=== PATIENT | male | born 1960 | race Caucasian/White ===

== ENCOUNTER → 2017-06-02 | Outpatient (CLI) | payer BC ==
[2017-06-02 09:34] LABS: Basophils % (A) 1 %; CH 32.4; Eosinophils # (A) 0.2 k/uL (0-0.7); Eosinophils % (A) 4 %; HCT 48.1 % (39.0-53.0); HDW 2.41; HGB 15.6 gm/dL (13.0-17.5); Luc # (Auto) 0.13; Luc % (Auto) 3; Lymphocytes # (A) 1.9 k/uL (1.0-4.8); Lymphocytes % (A) 39 %; MCHC 32.4 g/dL (31.0-37.0); MCV 98.7 fL (80.0-100.0); Mean Platelet Volume 7.5; Monocytes # (A) 0.4 k/uL (0-1.0); Monocytes % (A) 7 %; Neutrophils # (A) 2.2 k/uL (1.3-7.7); Neutrophils % (A) 46 %; RBC 4.87 m/uL (4.30-5.90); RDW 14.3 % (11.5-15.5); WBC 4.9 k/uL (3.8-10.6); WBC (Perox) 4.74
[2017-06-02 10:30] LABS: ALT 34 U/L (21-72); AST 32 U/L (17-59); Alkaline Phosphatase 54 U/L (38-126); Anion Gap 7 mmol/L; Blood Urea Nitrogen 13 mg/dL (9-20); Calcium 9.3 mg/dL (8.4-10.2); Carbon Dioxide 28 mmol/L (22-30); Chloride 103 mmol/L (98-107); Cholesterol 234 mg/dL (<200); Glucose 101 mg/dL (74-99); HDL Cholesterol 106 mg/dL (40-60); Non-African American GFR(MDRD) >60 (>60 ml/min/1.73 sqM); Potassium 4.8 mmol/L (3.5-5.1); Sodium 138 mmol/L (137-145); Total Bilirubin 1.3 mg/dL (0.2-1.3); Total Protein 7.3 g/dL (6.3-8.2)
== END | disposition home or self-care (01) ==
LOC: LABWHC1 08:56
PROVIDERS: ATTEND Internal Medicine
DX: Z00.00 Encounter for general adult medical examination without abnormal findings (principal); E78.5 Hyperlipidemia, unspecified; I10 Essential (primary) hypertension
CPT/HCPCS: 84439; 80061; 80053; 84443; 85025; 36415; G0103

== ENCOUNTER 2018-05-25 08:16 | Day surgery (SDC) | payer BC ==
[2018-05-23 12:55] VITALS: BMI 28.1
[~2018-05-25 08:16] MED LIST: LACTATED RINGERS 1,000 ML IV SCH
[2018-05-25 08:46] VITALS: RESP 18; TEMP 98.1
[2018-05-25] MEDS ORDERED: LIDOCAINE 1% 20 ML VIAL (10MG/ML) FOR IV START INTRADERMA ONE (08:56)
[2018-05-25] MEDS ORDERED: PROPOFOL 10 MG/ML 20 ML VIAL IV ONE (09:38)
--- NOTE | 2018-05-25 10:06 | P.PCN ---
Date of Procedure: 05/25/18 Procedure(s) Performed: procedure: Total colonoscopy. Preoperative diagnosis: Screening for neoplasia. Postoperative diagnosis: Exam within normal limits. Preparation: HalfLytely prep. Sedation: Was provided by anesthesia Brief clinical history: The patient is a 58-year-old male who is scheduled for this evaluation for screening for neoplasia age being his risk factor. His first exam was more than 10 years ago. The patient has no abdominal complaints , bleeding or anemia. Procedure: With the patient on his left lateral decubitus position and after informed consent and adequate sedation, the perianal area was inspected and it did not show any fissures or fistulas. There were no masses felt on digital rectal examination. The Olympus CFQ 160L video colonoscope was then inserted in the rectum in the usual fashion and advanced to the cecum. The mucosa appeared healthy. No polyps or tumors were seen or any obvious evidence of her disease or other pathology. I retroflexed the endoscope in the rectum before the endoscope was withdrawn. The patient tolerated the procedure well. Plan: The patient was reassured. He will follow up with you as planned and I recommended repeat exam in 10 years.
[2018-05-25 10:22] VITALS: BP 148/89; PULSE 72
== END 2018-05-25 10:46 | disposition home or self-care (01) ==
LOC: ORWHC2ENDO 08:16
DX: Z12.11 Encounter for screening for malignant neoplasm of colon (principal); I10 Essential (primary) hypertension; Z79.899 Other long term (current) drug therapy
CPT/HCPCS: 45378; J2704

== ENCOUNTER → 2018-07-19 | Outpatient (CLI) | payer BC ==
[2018-07-19 07:51] LABS: Basophils # (A) 0.1 k/uL (0-0.2); Basophils % (A) 1 %; Eosinophils # (A) 0.2 k/uL (0-0.7); Eosinophils % (A) 4 %; HCT 45.6 % (39.0-53.0); HGB 15.8 gm/dL (13.0-17.5); Lymphocytes # (A) 1.9 k/uL (1.0-4.8); Lymphocytes % (A) 43 %; MCH 33.4 pg (25.0-35.0); MCHC 34.6 g/dL (31.0-37.0); MCV 96.7 fL (80.0-100.0); Mean Platelet Volume 6.7; Monocytes # (A) 0.3 k/uL (0-1.0); Monocytes % (A) 7 %; Neutrophils # (A) 1.9 k/uL (1.3-7.7); Neutrophils % (A) 42 %; Platelet Count 247 k/uL (150-450); RBC 4.72 m/uL (4.30-5.90); RDW 13.4 % (11.5-15.5); WBC 4.5 k/uL (3.8-10.6)
[2018-07-19 16:33] LABS: Albumin 4.5 g/dL (3.80-4.90); Albumin/Globulin Ratio 2.37 (1.20-2.10); Anion Gap 6.7 mmol/L (4.00-12.00); Carbon Dioxide 28.3 mmol/L (21.6-31.8); Globulin 1.9 g/dL (2.1-3.7); Potassium 4.5 mmol/L (3.5-5.5); Total Bilirubin 1.3 mg/dL (0.2-1.2); Total Protein 6.4 g/dL (6.2-8.2)
== END ==
LOC: LABWHC1 07:24
PROVIDERS: ATTEND Internal Medicine
DX: Z00.00 Encounter for general adult medical examination without abnormal findings (principal); E78.5 Hyperlipidemia, unspecified
CPT/HCPCS: 80061; 80053; 85025; 36415; G0103

== ENCOUNTER → 2019-01-08 | Outpatient (CLI) | payer BC | LOC: LABWHC1 07:01 | PROVIDERS: ATTEND Urology | DX: C61 Malignant neoplasm of prostate (principal) | CPT/HCPCS: 36415; 84153 ==

== ENCOUNTER → 2019-07-03 | Outpatient (CLI) | payer BC | END | disposition home or self-care (01) | LOC: LABWHC1 07:22 | PROVIDERS: ATTEND Urology | DX: C61 Malignant neoplasm of prostate (principal) | CPT/HCPCS: 36415; 84153 ==

== ENCOUNTER → 2019-09-05 | Outpatient (CLI) | payer BC ==
--- NOTE | 2019-09-06 11:23 | MR ---
EXAMINATION TYPE: MR Prostate wo/w con DATE OF EXAM: 09/05/2019 COMPARISON: None IMAGE QUALITY: Good. INDICATION: Prostate Cancer PSA: 3.2 ng/ml Recent Biopsy and Date: 09/08/2018 Pathology Report (If Applicable): Positive for adenocarcinoma, Kat 7 of the right lateral apex (2 mm) and Kat 6 of the right apex (1 mm), on the left prostatic carcinoma of the left lateral apex measuring 2 mm benign prostatic parenchyma at other sites. TECHNIQUE: Examination was performed using a 3T MRI without an endorectal coil. Multiparametric imaging was perf ormed with T2 mutliplanar sequences, axial diffusion weighted imaging and dynamic contrast enhanced i maging, utilizing 8.5 mL intravenous Gadavist gadolinium contrast. FINDINGS: There is no clinically significant cancer identified. PROSTATE VOLUME: 4.5 x 4.5 x 4.4 cm (46.6 cc) PSA DENSITY: 5.6 ng/ml/cc Site 1: Assessment Category: 4 Size: 2 mm x 2 mm Location(s):right apex NVB invasion: No EPE: No Site 2: Assessment Category: 4 Size: 6 mm x 5 mm Location(s):right apex lateral NVB invasion: No EPE: No Seminal vesicle invasion: No Abnormal lymph nodes: No Bone metastases in inferior pelvis: No The T1 weighted images demonstrate no significant postprocedural hemorrhage. There are small circumscribed nodules of the central zone that are heterogenous compatible with mild benign prostatic hyperplasia. Urinary bladder appears trabeculated however urinary bladder is overall nondistended likely accountin g for the trabeculation urinary bladder wall thickening. There is a very small fat filled left inguin al hernia partially visualized. IMPRESSION: Highest Assessment Category: 4 There are 2 foci of clinically significant cancer identified. The first measures 6 x 5 mm of the righ t lateral prostate apex without extraprostatic extension. The second measures 2 x 2 mm of the right p rostate apex. The biopsy-proven 1 mm focus of prostatic adenocarcinoma in the left lateral apex is no t identified on MRI. No additional suspicious foci. False negative rates for MRI range from 5-20% depending on risk profile. Assessment Categories: 1 ? Very low (clinically significant cancer is highly unlikely to be present) 2 ? Low (clinically significant cancer is unlikely to be present) 3 ? Intermediate (the presence of clinically significant cancer is equivocal) 4 ? High (clinically significant cancer is likely to be present) 5 ? Very high (clinically significant cancer is highly likely to be present) Locations: PZ = peripheral zone; TZ = transition zone CZ=central zone; AFS = anterior fibromuscular stroma a=anterior half (i.e. PZa=anterior half of peripheral zone); pm= posterior medial (i.e PZpm) pl = postero-lateral (i.e. PZpl); p = posterior half (i.e. TZp) ; a = anterior half (i.e TZa or P Za) Other: N=no or no; E= equivocal; Y=yes EPE = extraprostatic extension NVB = neurovascular bundle NA = not applicable/not available
== END | disposition home or self-care (01) ==
LOC: RADMRIMAIN 11:24
PROVIDERS: ATTEND Urology
DX: C61 Malignant neoplasm of prostate (principal)
CPT/HCPCS: 72197; A9585

== ENCOUNTER → 2019-12-26 | Outpatient (CLI) | payer BC ==
[2019-12-26 09:48] LABS: Basophils % (A) 1 %; Eosinophils # (A) 0.2 k/uL (0-0.7); Eosinophils % (A) 3 %; HCT 45.2 % (39.0-53.0); Lymphocytes % (A) 45 %; MCH 32.4 pg (25.0-35.0); MCHC 33.3 g/dL (31.0-37.0); MCV 97.3 fL (80.0-100.0); Mean Platelet Volume 7.3; Monocytes # (A) 0.3 k/uL (0-1.0); Monocytes % (A) 7 %; Neutrophils # (A) 1.8 k/uL (1.3-7.7); Neutrophils % (A) 41 %; Platelet Count 274 k/uL (150-450); RBC 4.64 m/uL (4.30-5.90); RDW 13.5 % (11.5-15.5); WBC 4.4 k/uL (3.8-10.6)
[2019-12-26 15:56] LABS: African American GFR (CKD) 93.7 (60.0-200.0); Albumin 4.3 g/dL (3.80-4.90); Albumin/Globulin Ratio 2.05 (1.60-3.17); Anion Gap 7.6 mmol/L (4.00-12.00); Calcium 9.2 mg/dL (8.7-10.3); Carbon Dioxide 28.4 mmol/L (21.6-31.8); Chol/HDL Ratio 2.44; Globulin 2.1 g/dL (1.6-3.3); LDL Cholesterol,Calculated 100.8 mg/dL (0.0-131.0); Non-African American GFR(CKD) 80.9 (60.0-200.0); Potassium 4.6 mmol/L (3.5-5.5); Total Bilirubin 0.9 mg/dL (0.2-1.2); Total Protein 6.4 g/dL (6.2-8.2); VLDL Calculation 11.2 mg/dL (5.00-40.00)
[2019-12-26 16:03] LABS: T4, Free (Free Thyroxine) 1.2 ng/dL (0.80-1.80)
== END | disposition home or self-care (01) ==
LOC: LABWHC1 08:23
PROVIDERS: ATTEND Urology
DX: E78.5 Hyperlipidemia, unspecified (principal); C61 Malignant neoplasm of prostate; I10 Essential (primary) hypertension
CPT/HCPCS: 36415; 80053; 80061; 84153; 84439; 84443; 85025

== ENCOUNTER → 2020-04-29 | Outpatient (CLI) | payer BC | END | disposition home or self-care (01) | LOC: LABWHC1 07:28 | PROVIDERS: ATTEND Urology | DX: C61 Malignant neoplasm of prostate (principal) | CPT/HCPCS: 36415; 84153 ==

== ENCOUNTER → 2020-10-15 | Outpatient (CLI) | payer BC | END | disposition home or self-care (01) | LOC: LABWHC1 08:19 | PROVIDERS: ATTEND Urology | DX: C61 Malignant neoplasm of prostate (principal) | CPT/HCPCS: 36415; 84153 ==

== ENCOUNTER → 2021-05-15 | Outpatient (CLI) | payer BC ==
[2021-05-15 15:19] LABS: Basophils # (A) 0.04 X 10*3/uL (0.00-0.10); Eosinophils # (A) 0.14 X 10*3/uL (0.04-0.35); Eosinophils % (A) 3.5 %; HCT 45.8 % (39.6-50.0); HGB 15.4 g/dL (13.0-17.0); Lymphocytes # (A) 1.95 X 10*3/uL (0.90-5.00); Lymphocytes % (A) 49.2 %; MCH 33.7 pg (27.0-32.0); MCHC 33.6 g/dL (32.0-37.0); MCV 100.2 fL (80.0-97.0); Monocytes # (A) 0.42 X 10*3/uL (0.20-1.00); Monocytes % (A) 10.6 %; Neutrophils % (A) 35.4 %; Platelet Count 270 X 10*3/uL (140-440); RBC 4.57 X 10*6/uL (4.40-5.60); RDW 13.2 % (11.5-14.5); WBC 3.96 X 10*3/uL (4.50-10.00)
[2021-05-15 20:09] LABS: LDL Cholesterol,Calculated 105.5 mg/dL (0.0-131.0); Prostate Specific Antigen 6.3 ng/mL (0.00-4.50); T4, Free (Free Thyroxine) 1.52 ng/dL (0.800-1.800); Triglycerides 77.7 mg/dL (0.00-149.00); VLDL Calculation 15.54 mg/dL (5.00-40.00)
[2021-05-15 23:02] LABS: African American GFR (CKD) 104.1 (60.0-200.0); Albumin 4.7 g/dL (3.8-4.9); Albumin/Globulin Ratio 2.15 (1.60-3.17); Anion Gap 14.8 mmol/L (4.00-12.00); BUN/Creat Ratio 6.71 Ratio (12.00-20.00); Blood Urea Nitrogen 6.1 mg/dL (9.0-27.0); Calcium 8.9 mg/dL (8.7-10.3); Carbon Dioxide 22.1 mmol/L (21.6-31.8); Globulin 2.2 g/dL (1.6-3.3); Non-African American GFR(CKD) 89.9 (60.0-200.0); Potassium 4.8 mmol/L (3.5-5.5); Total Bilirubin 1.5 mg/dL (0.30-1.20); Total Protein 6.9 g/dL (6.2-8.2)
== END | disposition home or self-care (01) ==
LOC: LABWHC1 09:14
PROVIDERS: ATTEND Urology
DX: Z00.00 Encounter for general adult medical examination without abnormal findings (principal); C61 Malignant neoplasm of prostate; I10 Essential (primary) hypertension; E78.5 Hyperlipidemia, unspecified
CPT/HCPCS: 36415; 80053; 80061; 84153; 84439; 84443; 85025

== ENCOUNTER → 2021-11-23 | Outpatient (CLI) | payer BC | END | disposition home or self-care (01) | LOC: LABWHC1 10:02 | PROVIDERS: ATTEND Urology | DX: C61 Malignant neoplasm of prostate (principal) | CPT/HCPCS: 36415; 84153 ==

== ENCOUNTER → 2022-05-31 | Outpatient (CLI) | payer BC ==
[2022-05-31 23:12] LABS: Basophils # (A) 0.05 X 10*3/uL (0.00-0.10); Eosinophils # (A) 0.07 X 10*3/uL (0.04-0.35); Eosinophils % (A) 1.5 %; HGB 14.4 g/dL (13.0-17.0); Immature Grans, Automated 0.2 %; Lymphocytes # (A) 2.04 X 10*3/uL (0.90-5.00); Lymphocytes % (A) 42.4 %; MCH 33.7 pg (27.0-32.0); MCHC 33.5 g/dL (32.0-37.0); MCV 100.7 fL (80.0-97.0); Mean Platelet Volume 10.4 fL (9.5-12.2); Monocytes % (A) 10.4 %; NRBC Per 100 WBC 0 /100 WBCS (0.0-0.0); Neutrophils # (A) 2.14 X 10*3/uL (1.80-7.70); Neutrophils % (A) 44.5 %; Platelet Count 262 X 10*3/uL (140-440); RBC 4.27 X 10*6/uL (4.40-5.60); RDW 13.8 % (11.5-14.5); WBC 4.81 X 10*3/uL (4.50-10.00)
[2022-06-01] LABS: African American GFR (CKD) 109.1 (60.0-200.0); Albumin 4.6 g/dL (3.8-4.9); Albumin/Globulin Ratio 2.05 (1.60-3.17); BUN/Creat Ratio 13.17 Ratio (12.00-20.00); Blood Urea Nitrogen 10.6 mg/dL (9.0-27.0); Calcium 9.2 mg/dL (8.7-10.3); Carbon Dioxide 27.5 mmol/L (20.0-27.5); Globulin 2.3 g/dL (1.6-3.3); Non-African American GFR(CKD) 94.2 (60.0-200.0); Potassium 4.7 mmol/L (3.5-5.5); Prostate Specific Antigen 6.9 ng/mL (0.00-4.50); T4, Free (Free Thyroxine) 1.3 ng/dL (0.800-1.800); Total Bilirubin 1.1 mg/dL (0.30-1.20); Total Protein 6.9 g/dL (6.2-8.2); Triglycerides 48.7 mg/dL (0.00-149.00)
[2022-06-01 00:27] LABS: Chol/HDL Ratio 2.1 Ratio
== END | disposition home or self-care (01) ==
LOC: LABWHC1 13:22
PROVIDERS: ATTEND Urology
DX: Z00.00 Encounter for general adult medical examination without abnormal findings (principal); E78.5 Hyperlipidemia, unspecified; I10 Essential (primary) hypertension; C61 Malignant neoplasm of prostate
CPT/HCPCS: 36415; 80053; 80061; 83721; 84153; 84439; 84443; 85025

== ENCOUNTER → 2023-07-06 | Outpatient (CLI) | payer MEDICARE | END | disposition home or self-care (01) | LOC: LABWHC1 09:10 | PROVIDERS: ATTEND Urology | DX: C61 Malignant neoplasm of prostate (principal) | CPT/HCPCS: 36415; 84153 ==

== ENCOUNTER → 2024-01-09 | Outpatient (CLI) | payer MEDICARE | END | disposition home or self-care (01) | LOC: LABWHC1 07:52 | PROVIDERS: ATTEND Urology | DX: C61 Malignant neoplasm of prostate (principal) | CPT/HCPCS: 36415; 84153 ==

== ENCOUNTER → 2024-04-12 | Outpatient (CLI) | payer MEDICARE | END | disposition home or self-care (01) | LOC: LABWHC1 08:05 | PROVIDERS: ATTEND Urology | DX: C61 Malignant neoplasm of prostate (principal) | CPT/HCPCS: 36415; 84153 ==

== ENCOUNTER → 2024-07-03 | Outpatient (CLI) | payer MEDICARE ==
[2024-07-03 14:51] LABS: Basophils # (A) 0.03 X 10*3/uL (0.00-0.10); Basophils % (A) 0.8 %; Eosinophils # (A) 0.09 X 10*3/uL (0.04-0.35); Eosinophils % (A) 2.3 %; HCT 44.7 % (39.6-50.0); Lymphocytes # (A) 1.05 X 10*3/uL (0.90-5.00); Lymphocytes % (A) 26.9 %; MCH 32.6 pg (27.0-32.0); MCHC 33.6 g/dL (32.0-37.0); MCV 97.2 FL (80.0-97.0); Monocytes # (A) 0.46 X 10*3/uL (0.20-1.00); Monocytes % (A) 11.8 %; NRBC Per 100 WBC 0 X 10*3/uL (0.00-0.01); Neutrophils # (A) 2.27 X 10*3/uL (1.80-7.70); Neutrophils % (A) 57.9 %; Platelet Count 226 X 10*3/uL (140-440); RDW 13.7 % (11.5-14.5); WBC 3.91 X 10*3/uL (4.50-10.00)
[2024-07-03 15:21] LABS: ALT 23 U/L (10-49); AST 25 U/L (14-35); Albumin 4.6 g/dL (3.8-4.9); Alkaline Phosphatase 64 U/L (41-126); Blood Urea Nitrogen 10.4 mg/dL (9.0-27.0); Calcium 9.3 mg/dL (8.7-10.3); Carbon Dioxide 24.6 mmol/L (21.6-31.8); Chloride 102 mmol/L (96-109); Globulin 2.3 g/dL (1.6-3.3); Glucose 98 mg/dL (70-110); Potassium 4.6 mmol/L (3.5-5.5); Prostate Specific Antigen 7.76 ng/mL (0.000-4.500); Sodium 138 mmol/L (135-145); T4, Free (Free Thyroxine) 1.35 ng/dL (0.80-1.80); Total Bilirubin 1.3 mg/dL (0.3-1.2); Total Protein 6.9 g/dL (6.2-8.2)
== END | disposition home or self-care (01) ==
LOC: LABWHC1 10:24
PROVIDERS: ATTEND Urology
DX: C61 Malignant neoplasm of prostate (principal); I10 Essential (primary) hypertension; E78.5 Hyperlipidemia, unspecified
CPT/HCPCS: 36415; 80053; 83036; 84153; 84439; 84443; 85025

== ENCOUNTER → 2024-08-24 | Outpatient (CLI) | payer MEDICARE ==
--- NOTE | 2024-08-24 10:32 | MR ---
EXAMINATION TYPE: MR Prostate wo/w con DATE OF EXAM: 08/24/2024 COMPARISON: MRI prostate September 05, 2019 INDICATION: Prostate cancer PSA: 7.10 ng/ml in April 2024 Recent Biopsy and Date: September 2018 Pathology Report (If Applicable): Positive for adenocarcinoma, [place] 7 of the right lateral apex (2 mm) and Aurora 6 of the right apex (1 mm), on the left prostatic carcinoma of the left lateral apex measuring 2 mm. benign prostatic parenchyma at other sites. TECHNIQUE: Examination was performed using a 3T MRI without an endorectal coil. Multiparametric imaging was perf ormed with T2 mutliplanar sequences, axial diffusion weighted imaging and dynamic contrast enhanced i maging, utilizing 8 mL intravenous Gadavist gadolinium contrast. FINDINGS: PROSTATE VOLUME: 4.0 cm SI x 3.7 cm AP x 4.9 cm LR Vol= 38.0 cc PSA DENSITY: 0.19 ng/ml/cc Slightly enlarged prostate consistent with BPH is redemonstrated. Peripheral zone hypertrophy redemon strated. No definitive new suspicious lesions. Site 1: Assessment Category:4 Size: 6 mm Right posterior lateral peripheral zone axial image 15 showing subtle diminished signal on ADC mappin g and slight increased signal on DWI with diminished signal in T2-weighted images and focal postcontr ast enhancement similar in location and size to prior. Mild to moderate wall thickening and trabeculation of the urinary bladder. There is a small fat-conta ining left inguinal hernia. No destructive osseous lesions. IMPRESSION: Slightly enlarged prostate redemonstrated. Stable suspicious 5-6 mm lesion in the right lateral mid to apical region. No new suspicious lesions on prostate MRI. Highest Assessment Category: 4 MRI Stage: T1c N0 M0 based on review of pelvic images. False negative rates for MRI range from 5-20% depending on risk profile. Assessment Categories: 1 ? Very low (clinically significant cancer is highly unlikely to be present) 2 ? Low (clinically significant cancer is unlikely to be present) 3 ? Intermediate (the presence of clinically significant cancer is equivocal) 4 ? High (clinically significant cancer is likely to be present) 5 ? Very high (clinically significant cancer is highly likely to be present) [facility], , 08/24/2024 10:30 AM
== END | disposition home or self-care (01) ==
LOC: RADMRIMAIN 05:48
PROVIDERS: ATTEND Urology
DX: C61 Malignant neoplasm of prostate (principal); N40.0 Benign prostatic hyperplasia without lower urinary tract symptoms
CPT/HCPCS: 72197; A9585

== ENCOUNTER → 2024-11-15 | Outpatient (CLI) | payer MEDICARE ==
[2024-11-15 15:32] LABS: Basophils # (A) 0.04 X 10*3/uL (0.00-0.10); Basophils % (A) 1.1 %; Eosinophils # (A) 0.13 X 10*3/uL (0.04-0.35); Eosinophils % (A) 3.6 %; HCT 46.2 % (39.6-50.0); HGB 15.1 g/dL (13.0-17.0); Lymphocytes # (A) 1.83 X 10*3/uL (0.90-5.00); Lymphocytes % (A) 50.8 %; MCH 31.9 pg (27.0-32.0); MCHC 32.7 g/dL (32.0-37.0); MCV 97.7 FL (80.0-97.0); Mean Platelet Volume 10.4 FL (9.5-12.2); Monocytes # (A) 0.43 X 10*3/uL (0.20-1.00); Monocytes % (A) 11.9 %; NRBC Per 100 WBC 0 X 10*3/uL (0.00-0.01); Neutrophils # (A) 1.15 X 10*3/uL (1.80-7.70); Platelet Count 272 X 10*3/uL (140-440); RBC 4.73 X 10*6/uL (4.40-5.60); RDW 14.5 % (11.5-14.5)
[2024-11-15 15:34] LABS: BUN/Creat Ratio 9.56 Ratio (12.00-20.00); Blood Urea Nitrogen 8.6 mg/dL (9.0-27.0); Calcium 9.3 mg/dL (8.7-10.3); Carbon Dioxide 27.9 mmol/L (21.6-31.8); Chloride 100 mmol/L (96-109); Glucose 103 mg/dL (70-110); Potassium 4.8 mmol/L (3.5-5.5); Sodium 136 mmol/L (135-145)
== END | disposition home or self-care (01) ==
LOC: LABPAT 10:10
PROVIDERS: ATTEND Urology
DX: Z01.812 Encounter for preprocedural laboratory examination (principal); C61 Malignant neoplasm of prostate
CPT/HCPCS: 80048; 85025

== ENCOUNTER 2024-11-22 08:50 | Day surgery (SDC) | payer MEDICARE ==
[2024-11-19 14:46] VITALS: BMI 28.8
--- NOTE | 2024-11-20 21:47 | P.GSHP ---
History of Present Illness H&P Date: 11/20/24 Chief Complaint: Prostate cancer The patient is a 64-year-old white male diagnosed with prostate cancer in September 2018. His [place] score at that time was 7 (3+4), and he opted for active surveillance rather than treatment. His PSA level at the time of diagnosis was 4.3, and has increased to 7.76. He is clinically stable. Prostate MRI shows a prostate volume of 38 cc, with a PI-RADS 4 lesion seen within the right peripheral zone mid apex. - Cardiovascular Cardiovascular: Reports high blood pressure - Genitourinary (Male) Genitourinary: Reports nocturia Past Medical History Past Medical History: Cancer, Hearing Disorder / Deafness, Hypertension Additional Past Medical History / Comment(s): Had prior MRI of prostate, showed lesion and 3 biopsies positive for prostate cancer, being monitored by Dr Infante, elevated PSA. Mild hearing loss. History of Any Multi-Drug Resistant Organisms: None Reported Additional Past Surgical History / Comment(s): Colonoscopy, hemorrhoidectomy. Past Anesthesia/Blood Transfusion Reactions: No Reported Reaction Additional Past Anesthesia/Blood Transfusion Reaction / Comment(s): No hx blood transfusion. Smoking Status: Never smoker - Past Family History Mother Family Medical History: No Reported History Medications and Allergies Home Medications Medication Instructions Recorded Confirmed Type amLODIPine BESYLATE [Norvasc] 5 mg PO QAM 05/23/18 11/19/24 History Allergies Allergy/AdvReac Type Severity Reaction Status Date / Time No Known Allergies Allergy Verified 11/19/24 14:34 Surgical - Exam - General well developed, well nourished, no distress - Respiratory normal respiratory effort - Abdomen Abdomen: soft, non tender, no guarding, no rigid, no rebound Hernia: inguinal - Genitourinary normal penis with no external lesions, testicles non-tender - Rectum Rectum: normal sphincter tone, no masses, other (Prostate mildly enlarged but smooth) - Psychiatric oriented to time, oriented to person, oriented to place, speech is normal, memory intact Assessment and Plan (1) Malignant neoplasm of prostate Status: Acute Code(s): C61 - MALIGNANT NEOPLASM OF PROSTATE SNOMED Code(s): 347582647 Plan: The patient will undergo MRI-Ultrasound fusion transrectal biopsies of the prostate. The procedure has been reviewed in detail with the patient. He has been made aware of potential risks, which include anesthesia, bleeding, and infection.
[~2024-11-22 08:50] MED LIST changes: +DEXAMETHASONE SOD PHOSPHATE 4 MG/ML 1 ML VIAL IV ONE; +HYDROmorphone 0.5 MG/0.5 ML SYRINGE IVP PRN; -LACTATED RINGERS 1,000 ML IV SCH; +LIDOCAINE 1% (10MG/ML) FOR IV START INTRADERMA PRN; +MIDAZOLAM 2 MG/2 ML VIAL IV PRN; +ONDANSETRON 4 MG/2 ML VIAL IVP ONE; +fentaNYL (PF) 50 MCG/ML 2 ML AMP IVP PRN
[2024-11-22] MEDS: IV FLUID CONTINUATION 1,000 ML IV ONE (10:22)
[2024-11-22 10:24] VITALS: TEMP 97.2
[2024-11-22] MEDS: LACTATED RINGERS 1,000 ML IV SCH (10:28)
[2024-11-22] MEDS: GENTAMICIN 40 MG/ML 2 ML VIAL IM PRN (10:40)
[2024-11-22] MEDS ORDERED: PROPOFOL 10 MG/ML 20 ML VIAL IV ONE (11:33)
[2024-11-22] MEDS ORDERED: fentaNYL (PF) 50 MCG/ML 2 ML AMP ONE (11:33)
[2024-11-22] MEDS ORDERED: MIDAZOLAM 2 MG/2 ML VIAL ONE (11:33)
--- NOTE | 2024-11-22 11:56 | P.OP ---
Date of Procedure: 11/22/24 Preoperative Diagnosis: Adenocarcinoma of the prostate Postoperative Diagnosis: Same Procedure(s) Performed: MRI fusion biopsies of the prostate Anesthesia: MAC Surgeon: Terry Infante Estimated Blood Loss (ml): 5 IV fluids (ml): 100 Pathology: other (Prostate biopsies) Condition: stable Disposition: PACU Indications for Procedure: The patient is a 64-year-old white male diagnosed with prostate cancer in September 2018. His [place] score at that time was 7 (3+4), and he opted for active surveillance rather than treatment. His PSA level at the time of diagnosis was 4.3, and has increased to 7.76. He is clinically stable. Prostate MRI shows a prostate volume of 38 cc, with a PI-RADS 4 lesion seen within the right peripheral zone mid apex. Operative Findings: Diminished echogenicity within the target lesion. Description of Procedure: The patient was taken to the operating room and placed in the left lateral decubitus position. JIN revealed the prostate to be mildly enlarged but smooth. The [email or web address] transrectal ultrasound probe was placed intrarectally. It was then placed within the stand of the [employer] MRI/TRUS Fusion for Prostate Biopsy system. The prostate was imaged in both the axial and sagittal planes, revealing a prostate volume of 40 mL. Using the Biopty gun, 3 biopsies were obtained from the right peripheral zone mid gland target lesion. The remaining 12 biopsies of the peripheral zone were obtained utilizing a standard template. Once the procedure was completed, the ultrasound probe was removed. The patient tolerated the procedure well was taken to the recovery room stable condition.
[2024-11-22 12:12] VITALS: BP 125/77; PULSE 64; RESP 16
== END 2024-11-22 11:50 | disposition home or self-care (01) ==
LOC: OR 08:50
PROVIDERS: ATTEND Urology
DX: C61 Malignant neoplasm of prostate (principal); H91.90 Unspecified hearing loss, unspecified ear; I10 Essential (primary) hypertension; Z79.899 Other long term (current) drug therapy; Z98.890 Other specified postprocedural states
CPT/HCPCS: 88305; 55700; J2250; J1580; J3010; J2704

== ENCOUNTER → 2025-01-15 | Outpatient (CLI) | payer MEDICARE ==
[2025-01-15 15:01] LABS: HCT 42.5 % (39.6-50.0); HGB 13.9 g/dL (13.0-17.0); MCHC 32.7 g/dL (32.0-37.0); MCV 97.9 FL (80.0-97.0); Mean Platelet Volume 10.4 FL (9.5-12.2); NRBC Per 100 WBC 0 X 10*3/uL (0.00-0.01); Platelet Count 264 X 10*3/uL (140-440); RBC 4.34 X 10*6/uL (4.40-5.60); WBC 3.14 X 10*3/uL (4.50-10.00)
[2025-01-15 15:26] LABS: Basophils # (A) 0.03 X 10*3/uL (0.00-0.10); Eosinophils # (A) 0.08 X 10*3/uL (0.04-0.35); Eosinophils % (A) 2.5 %; Lymphocytes % (A) 54.1 %; Monocytes # (A) 0.33 X 10*3/uL (0.20-1.00); Monocytes % (A) 10.5 %; Neutrophils # (A) 0.99 X 10*3/uL (1.80-7.70); Neutrophils % (A) 31.6 %; RBC Morphology Normal (Normal)
[2025-01-15 15:38] LABS: Chol/HDL Ratio 2.38 Ratio; VLDL Calculation 10.98 mg/dL (5.00-40.00)
[2025-01-15 15:39] LABS: ALT 23 U/L (10-49); AST 29 U/L (14-35); Albumin 4.6 g/dL (3.8-4.9); Albumin/Globulin Ratio 2.09 Ratio (1.60-3.17); Alkaline Phosphatase 62 U/L (41-126); Blood Urea Nitrogen 11.3 mg/dL (9.0-27.0); Calcium 9.3 mg/dL (8.7-10.3); Carbon Dioxide 26.8 mmol/L (21.6-31.8); Chloride 101 mmol/L (96-109); Globulin 2.2 g/dL (1.6-3.3); Glucose 104 mg/dL (70-110); LDL Cholesterol,Calculated 107.8 mg/dL (0.0-131.0); Potassium 4.3 mmol/L (3.5-5.5); Sodium 137 mmol/L (135-145); T4, Free (Free Thyroxine) 1.49 ng/dL (0.80-1.80); Total Bilirubin 0.8 mg/dL (0.3-1.2); Total Protein 6.8 g/dL (6.2-8.2)
== END | disposition home or self-care (01) ==
LOC: LABWHC1 09:16
PROVIDERS: ATTEND Internal Medicine
DX: E78.5 Hyperlipidemia, unspecified (principal); I10 Essential (primary) hypertension
CPT/HCPCS: 36415; 80053; 80061; 83036; 84439; 84443; 85025

== ENCOUNTER → 2025-02-20 | Outpatient (CLI) | payer MEDICARE ==
[2025-02-20 19:31] LABS: Anion Gap 12.40 mmol/L (4.00-12.00); BUN/Creat Ratio 11.22 Ratio (12.00-20.00); Blood Urea Nitrogen 10.1 mg/dL (9.0-27.0); Calcium 9.2 mg/dL (8.7-10.3); Carbon Dioxide 23.6 mmol/L (21.6-31.8); Chloride 98 mmol/L (96-109); Glucose 95 mg/dL (70-110); Potassium 4.6 mmol/L (3.5-5.5); Sodium 134 mmol/L (135-145)
[2025-02-20 19:55] LABS: Basophils # (A) 0.04 X 10*3/uL (0.00-0.10); Basophils % (A) 0.9 %; Eosinophils # (A) 0.06 X 10*3/uL (0.04-0.35); Eosinophils % (A) 1.3 %; HCT 42.0 % (39.6-50.0); HGB 14.0 g/dL (13.0-17.0); Immature Grans, Automated 0.20 %; Lymphocytes # (A) 2.08 X 10*3/uL (0.90-5.00); Lymphocytes % (A) 44.8 %; MCH 32.9 pg (27.0-32.0); MCHC 33.3 g/dL (32.0-37.0); MCV 98.6 FL (80.0-97.0); Monocytes # (A) 0.49 X 10*3/uL (0.20-1.00); Monocytes % (A) 10.6 %; NRBC Per 100 WBC 0 X 10*3/uL (0.00-0.01); Neutrophils # (A) 1.96 X 10*3/uL (1.80-7.70); Neutrophils % (A) 42.2 %; Platelet Count 268 X 10*3/uL (140-440); RBC 4.26 X 10*6/uL (4.40-5.60); RDW 14.4 % (11.5-14.5); WBC 4.64 X 10*3/uL (4.50-10.00)
[2025-02-20 20:02] LABS: Bilirubin,Urine Negative (Negative); Blood,Urine Negative (Negative); Color,Urine Yellow (Yellow); Ketones,Urine Trace (Negative); Nitrite,Urine Negative (Negative); PH, Urine 7.0; Specific Gravity,Urine 1.012 (1.001-1.030); Urobilinogen,Urine 1.0 E.U./DL
== END | disposition home or self-care (01) ==
LOC: LABPAT 15:37
PROVIDERS: ATTEND Urology
DX: Z01.812 Encounter for preprocedural laboratory examination (principal); C61 Malignant neoplasm of prostate
CPT/HCPCS: 80048; 81003; 85025; 86850; 86900; 86901; 87086

== ENCOUNTER 2025-02-28 09:56 | Day surgery (SDC) | payer MEDICARE ==
[2025-02-21 16:00] VITALS: BMI 28.1
--- NOTE | 2025-02-26 10:53 | P.HPIHPCON ---
History of Present Illness H&P Date: 02/26/25 Chief Complaint: Prostate cancer This is a 64-year-old male with history of [place] 7(3+4) prostate cancer, has been on active surveillance since 2019, underwent repeat biopsy in October of this year which showed evidence of disease progression. At this point option of a robotic radical prostatectomy versus radiation therapy, versus alternatives options were discussed. He understood all the risk and agreed to proceed with a robotic radical prostatectomy. He is aware of the risk which include but not limited to bleeding, infection, urinary incontinence, erectile dysfunction. Discussed the risk of injury to nearby organs. Risk of cancer recurrence and the need for additional treatment was discussed. Of note patient also has evidence of inguinal hernia, plan is to have inguinal hernia repaired at the same time by Dr. Parekh. He understood all risk and agreed to proceed Consent for Procedure: I have explained the operation/procedure to the patient, including the risks, benefits, side effects, alternative therapies (including not receiving the proposed treatment or service), the likelihood of the patient achieving his/her goals, and potential recuperation problems for the procedure/sedation/analgesia, as well as any blood products, if indicated. I also explained to the patient the risks, benefits and side effects of the alternatives, as well as the risks related to not receiving the proposed procedure, care, treatment, or services. Past Medical History Past Medical History: Hypertension Additional Past Medical History / Comment(s): MRI of prostate showed lesion and 3 bx's positive for prostate CA, elevated PSA, History of Any Multi-Drug Resistant Organisms: None Reported Additional Past Surgical History / Comment(s): colonoscopy, hemorrhoidectomy, 3 biopsies of prostate Past Anesthesia/Blood Transfusion Reactions: No Reported Reaction Additional Past Anesthesia/Blood Transfusion Reaction / Comment(s): no hx of blood transfusion Smoking Status: Never smoker - Past Family History Mother Family Medical History: No Reported History Medications and Allergies Home Medications Medication Instructions Recorded Confirmed Type amLODIPine BESYLATE [Norvasc] 5 mg PO QAM 05/23/18 02/21/25 History Allergies Allergy/AdvReac Type Severity Reaction Status Date / Time No Known Allergies Allergy Verified 02/21/25 15:31 Surgical - Exam - General no distress, no pain - Eyes normal ocular movement, no pale - ENT normal nares, normal mucosa - Respiratory normal expansion, normal respiratory effort - Abdomen Abdomen: soft, non tender, no distended - Psychiatric oriented to time, oriented to person, oriented to place Assessment and Plan Assessment: OR for robotic radical prostatectomy, patient also undergoing inguinal hernia repair robotically by Dr. Parekh.
[~2025-02-28 09:56] MED LIST changes: -DEXAMETHASONE SOD PHOSPHATE 4 MG/ML 1 ML VIAL IV ONE; -LIDOCAINE 1% (10MG/ML) FOR IV START INTRADERMA PRN; -MIDAZOLAM 2 MG/2 ML VIAL IV PRN; -ONDANSETRON 4 MG/2 ML VIAL IVP ONE; -fentaNYL (PF) 50 MCG/ML 2 ML AMP IVP PRN
[2025-02-28] MEDS: IV FLUID CONTINUATION 1,000 ML IV ONE ×2 (10:16)
[2025-02-28] MEDS: DEXAMETHASONE SOD PHOSPHATE 4 MG/ML 1 ML VIAL IV ONE (10:54)
[2025-02-28] MEDS: ACETAMINOPHEN TAB 500 MG TAB PO PRN (10:54)
[2025-02-28] MEDS: ONDANSETRON 4 MG/2 ML VIAL IVP ONE (10:55)
[2025-02-28] MEDS: MIDAZOLAM 2 MG/2 ML VIAL IV PRN (11:01)
[2025-02-28] MEDS: LACTATED RINGERS 1,000 ML IV SCH (11:08)
[2025-02-28] MEDS: HEPARIN SODIUM,PORCINE 5,000 UNIT/ML 1 ML VIAL SQ PRN (11:09)
--- NOTE | 2025-02-28 11:09 | P.ANPRN ---
Procedure Note - Anesthesia - Nerve Block Performed Bilateral Erector Spinae Single Time Out Performed: Yes Date of Procedure: 02/28/25 Procedure Start Time: 11:00 Procedure Stop Time: 11:05 Location of Patient: PreOp Indication: Acute Post-Operative Pain, Analgesia, Requested by Surgeon Sedation Type: Sedate with meaningful contact maintained Preparation: Sterile Prep Position: Prone Catheter: None Needle Types: Pajunk Needle Gauge: 21 Ultrasound used to visualize needle placement: Yes Ultrasound used to observe medication spread: Yes Injectate: 0.5% Ropivacaine (see comment for volume) ([id number], Needle level T11-- Each side) Blood Aspirated: No Pain Paresthesia on Injection Noted: No Resistance on Injection: Normal Image Stored and Saved: Yes Events: Uneventful and Well Tolerated
[2025-02-28] MEDS ORDERED: ONDANSETRON 4 MG/2 ML VIAL IVP PRN (12:05)
[2025-02-28] MEDS ORDERED: HYDROmorphone 1 MG/ML 1 ML SYRINGE IVP PRN (12:05)
[2025-02-28] MEDS ORDERED: HYDROmorphone (PF) 1 MG/ML ONE (12:12)
[2025-02-28] MEDS ORDERED: PHENYLEPHRINE 10 MG/ML VIAL ONE (12:12)
[2025-02-28] MEDS ORDERED: DEXAMETHASONE SOD PHOSPHATE 4 MG/ML 1 ML VIAL ONE (12:12)
[2025-02-28] MEDS ORDERED: ROPIVACAINE 5 MG/ML 30 ML VIAL ONE (12:12)
[2025-02-28] MEDS ORDERED: NEOSTIGMINE 1 MG/ML 10 ML VIAL ONE (12:12)
[2025-02-28] MEDS ORDERED: LIDOCAINE 1% INJ 10MG/ML (20 ML MDV) ONE (12:12)
[2025-02-28] MEDS ORDERED: PROPOFOL 10 MG/ML 20 ML VIAL IV ONE (12:12)
[2025-02-28] MEDS ORDERED: GLYCOPYRROLATE 0.2 MG/ML 2 ML VIAL ONE (12:12)
[2025-02-28] MEDS ORDERED: MIDAZOLAM 2 MG/2 ML VIAL ONE (12:12)
[2025-02-28] MEDS ORDERED: fentaNYL (PF) 50 MCG/ML 2 ML AMP ONE (12:12)
[2025-02-28] MEDS ORDERED: SUCCINYLCHOLINE CHLORIDE 200 MG/10 ML VIAL IV ONE (12:12)
[2025-02-28] MEDS ORDERED: ROCURONIUM 10 MG/ML (5 ML VIAL) IV ONE (12:12)
[2025-02-28] MEDS: BUPIVACAINE (PF) 0.25% 30 ML VIAL SQ ONE ×2 (12:53→17:25)
[2025-02-28] MEDS ORDERED: ACETAMINOPHEN TAB 325 MG TAB PO PRN (17:39)
--- NOTE | 2025-02-28 17:43 | P.OP ---
Date of Procedure: 02/28/25 Procedure(s) Performed: PREOPERATIVE DIAGNOSIS: Left inguinal hernia POSTOPERATIVE DIAGNOSIS: Bilateral inguinal hernia PROCEDURE: Laparoscopic da Joi assisted repair of bilateral inguinal hernia with mesh SURGEON: Dr. Parekh ANESTHESIA: General EBL: 25 cc OPERATIVE PROCEDURE DETAILS: Patient was already in the operating room for the prostatectomy. After laparoscopic access was obtained and the robot was docked I assisted in marking on the peritoneum where the peritoneal flap would be ideally placed for my hernia repair. After doing so the prostatectomy took place and dictated separately by urology. Following that the preperitoneal space at the site of the hernias was dissected fully. On the left-hand side the patient had a moderate-sized direct hernia. On the right-hand side not surprisingly there was a small direct inguinal hernia noted. Again these were able to be reduced without difficulty. 2 portions of mesh were placed within the abdomen crossing one another in the midline. These were then sutured to the Dominik's ligament across the pubic symphysis to the opposite side using a running 30 absorbable V lock suture. A second absorbable 3 oh V-Loc was then used along the superior medial aspect of the mesh suturing it loosely to the anterior abdominal wall and to each other. This covered all hernia spaces nicely. The peritoneal defect was then closed bilaterally using a absorbable 2- 0 VLok suture. The hernia sacs were incorporated into the peritoneal closure to help prevent future recurrence. The pneumoperitoneum was then evacuated. The skin of all 3 sites was closed using a 4-0 Monocryl stitch. Skin glue was then applied. TYPE OF MESH USED: Progrip 15 x 10 x 2 LOCATION OF MESH: Preperitoneal/sub-lay FIXATION: Absorbable 30V lock PREOPERATIVE DISCUSSION ON SMOKING CESSASTION: Yes PREOPERATIVE DISCUSSION ON MORBID OBESITY: Yes PREOPERATIVE DISCUSSION ON APPROPRIATE USE OF NARCOTIC USE: Yes PREOPERATIVE EDUCATION: Multi Modal, Smoking Cessation and Weight Loss with BMI over 35. DISPOSITION: Stable to recovery room
[2025-02-28] MEDS: KETOROLAC 15 MG/ML 1 ML VIAL IVP SCH (18:29)
[2025-02-28] MEDS: D5-0.45% NACL WITH KCL 20MEQ/L 1,000 ML IV SCH (19:36)
[2025-02-28] MEDS: HEPARIN SODIUM,PORCINE 5,000 UNIT/ML 1 ML VIAL SQ SCH (19:36)
[2025-03-01 07:35] VITALS: BP 123/73; PULSE 68; RESP 16; TEMP 98.4
[2025-03-01] MEDS: amLODIPine 5 MG TAB PO SCH (08:25)
--- NOTE | 2025-03-01 09:36 | P.DS ---
Providers Expected date of discharge: 03/01/25 Attending physician: Akira Patterson MD [facility] Course: On the day of admission, the patient underwent an RALP. Bilateral inguinal hernias were were repaired at that time. The perioperative course was unremarkable. The patient remained afebrile with stable vital signs. On the first postoperative day, he was comfortable and denied nausea. He tolerated breakfast and was getting around without difficulty. On examination, the abdomen was soft and non-distended. Incisions were clean, dry, and intact. The Robins catheter was draining faintly blood-tinged urine. Procedures: Robotic assisted laparoscopic prostatectomy (RALP) with bilateral inguinal hernia repair on February 28, 2025. Patient Condition at Discharge: Good Plan - Discharge Summary Discharge Rx Participant: Yes New Discharge Prescriptions: New Ciprofloxacin HCl [Cipro] 250 mg PO Q12HR #6 tablet Ketorolac [Toradol] 10 mg PO Q6HR PRN #10 tab PRN Reason: Pain No Action amLODIPine BESYLATE [Norvasc] 5 mg PO QAM Discharge Medication List amLODIPine BESYLATE [Norvasc] 5 mg PO QAM 05/23/18 [History] Ciprofloxacin HCl [Cipro] 250 mg PO Q12HR #6 tablet 03/01/25 [Rx] Ketorolac [Toradol] 10 mg PO Q6HR PRN #10 tab 03/01/25 [Rx] Follow up Appointment(s)/Referral(s): Akira Patterson MD [STAFF PHYSICIAN] - 10 Days Activity/Diet/Wound Care/Special Instructions: Discharge home with Robins catheter. Instruct patient to use overnight drainage bag as well as urinary leg bag. Okay to shower. Diet as tolerated. No lifting, driving, or strenuous activity. Reassure patient that abdominal wall ecchymosis and penoscrotal swelling are normal. Instruct patient to begin taking antibiotics one day prior to Robins catheter removal. Discharge Disposition: HOME SELF-CARE
--- NOTE | 2025-03-01 12:17 | P.OP ---
Date of Procedure: 02/28/25 Preoperative Diagnosis: Prostate cancer Postoperative Diagnosis: Same Procedure(s) Performed: Robotic assisted laparoscopic radical prostatectomy Implants: None Anesthesia: SHAINA Surgeon: Akira Patterson Estimated Blood Loss (ml): 125 Pathology: other (Prostate and seminal vesicles) Condition: stable Disposition: PACU Indications for Procedure: This is a 64-year-old male with history of Kat 7(3+4) prostate cancer, has been on active surveillance since 2019, underwent repeat biopsy in October of this year which showed evidence of disease progression. At this point option of a robotic radical prostatectomy versus radiation therapy, versus alternatives options were discussed. He understood all the risk and agreed to proceed with a robotic radical prostatectomy. He is aware of the risk which include but not limited to bleeding, infection, urinary incontinence, erectile dysfunction. Discussed the risk of injury to nearby organs. Risk of cancer recurrence and the need for additional treatment was discussed. Of note patient also has evidence of inguinal hernia, plan is to have inguinal hernia repaired at the same time by Dr. Parekh. He understood all risk and agreed to proceed Operative Findings: Significant desmoplastic reaction along the posterior plane, no perirectal fat could be visualized, as the rectum was quite adherent to the prostate. Seminal vesicles significantly inflamed and were difficult to dissect Description of Procedure: After preoperative antibiotics were started, the patient was taken to the operating room. Anesthesia was induced and the patient was placed in a supine position, with adequate padding of the pressure points, shoulders, back, legs and arms. He was then prepped and draped in the standard fashion. A critical pause was performed using two patient identifiers. A 16F parr catheter was placed to gravity drainage. A pneumo-peritoneum was created with placement of a Veress needle to 20 mm Hg without complication, and a 8 Fr trocar was placed above the umbillicus. Under direct vision a 8mm robotic ports was placed lateral to each rectus slightly below the camera port. The left iliac fossa 8mm port was placed. The right assistant professor of geography right iliac fossa 12mm port and right paramedian 5mm portwere placed. After the patient was placed in the trendelenberg position, the robot was then docked to the 8mm robotic ports and then each robotic arm and tower was checked in relation to the patient's legs and hands to avoid inadvertent compression. The peritoneal cavity was inspected. At this time the peritoneum was incised down and mobilized.. The limbs of the "U" extended to the level of the vasa on both sides. We next developed the preperitoneal space and the space of Retzius. At this time the hernia sac was dissected out on both sides by Dr. Parekh. Cautery was used to dissected the bladder away from the prostate. After the anterior bladder neck was incised and the bladder entered the the posterior bladder neck was exposed and the ureteral orifces identified. The posterior bladder neck was then incised and dissected away from the prostate. The vas and the seminal vesicles were now exposed and dissected to their insertions into the prostate and were not spared. The posterior layer of the Denonvillier's fascia was incised to enter matthieu the plane between prostate and perirectal fat. Patient had a significant desmoplastic reaction along the mid and the base of the prostate to the rectum, there was no perirectal fat that could be visualized, and the prostate was adherent to the rectum, I was able to incise the prostate sharply away from the rectum. Given patient's low risk disease decision was made to stay fairly close to the prostate to avoid potential rectal injury, after the base of the mid gland was dissected the apex was able to be freed up more easily. Each lateral pedicle was controlled with clips and cautery for hemostasis. I attempted to do complete nerve preservation on both sides, but the neurovascular bundle was adherent to the prostate at the level of the base, thus I was able to develop a plane lower down, only partial nerve preservation was performed bilaterally.. The puboprostatic ligament was incised where it inserted into the apex of the prostate and a plane between urethra and dorsal venous complex developed to expose the anterior urethral surface. The anterior wall of the urethra was transected with the cut setting a few millimeters distal to the apex of the prostate. The dorsal vein was ligated using 3-0 V lock The urethrovesical anastomosis was performed . the posterior denovillers was reapproximated using 3-0 V lock. A 6 and 6 inch 3-0 V-Lock suture was used to anastomose the urethra and bladder, starting at the 6:00 posterior position. Mucosa was secured in every stitch, to ensure a mucosa to mucosa anastomosis. The stitch was regularly cinched and the anastomosis tightened. Care was taken to not violate the ureteral orifices. The Parr catheter was advanced, the bladder filled, and the anastomosis was tested, as described above. Anastomsis was watertight at [address] mL[address] At this time Dr[address] Parekh completed his portion of the case, please see his dictation for that part of the surgery. The patient tolerated the surgery well and without complication. He awoke without difficulty and was taken to the recovery room in stable condition
== END 2025-03-01 11:58 | disposition home or self-care (01) ==
LOC: OR 09:56 → 4SSUR 17:36 → OR 03-01 11:58
PROVIDERS: ATTEND Urology
DX: C61 Malignant neoplasm of prostate (principal); K40.20 Bilateral inguinal hernia, without obstruction or gangrene, not specified as recurrent; G89.18 Other acute postprocedural pain; I10 Essential (primary) hypertension; E78.00 Pure hypercholesterolemia, unspecified; F41.9 Anxiety disorder, unspecified; Z79.899 Other long term (current) drug therapy
CPT/HCPCS: 49650; 55866; S2900; 64468; 88305; 88309